=== PATIENT | male | born 1975 | race African-American/Black ===

== ENCOUNTER 2017-09-19 12:32 | Emergency (ER) | payer SELFPAY ==
[~2017-09-19] VITALS: Ht 182.9 cm; Wt 105.0 kg
[2017-09-19 12:53] VITALS: BP 149/70; PULSE 81; RESP 17; TEMP 98.2; O2SAT 94
--- NOTE | 2017-09-19 14:22 | RADRPT ---
EXAM DATE/TIME: 09/19/2017 13:36 [facility] COMPARISON: No previous studies available for comparison. INDICATIONS : Left side chest pains with pressure. MEDICAL HISTORY : Pulmonary embolism 2017 SURGICAL HISTORY : None. ENCOUNTER: Initial ACUITY: 2 days PAIN SCORE: 7/10 LOCATION: Left chest FINDINGS: A single view of the chest demonstrates the lungs to be symmetrically aerated without evidence of mas s, infiltrate or effusion. The cardiomediastinal contours are unremarkable. Osseous structures are intact. CONCLUSION: Normal examination. Carlitos Cisneros Jr., MD on September 19, 2017 at 14:18 Board Certified Radiologist. This report was verified electronically.
[2017-09-19 17:14] LABS: AUTOMATED NEUTROPHIL # 3.2 TH/MM3 (1.8-7.7); BASOPHIL # 0.1 TH/MM3 (0-0.2); BASOPHIL % 1.1 % (0.0-2.0); EOSINOPHIL # 0.1 TH/MM3 (0-0.4); EOSINOPHIL % 1.7 % (0.0-4.0); HEMATOCRIT 40.9 % (39.0-51.0); HEMOGLOBIN 13.7 GM/DL (13.0-17.0); LYMPH % 47.7 % (9.0-44.0); LYMPHOCYTE # 3.7 TH/MM3 (1.0-4.8); MEAN CELL VOLUME 96.2 FL (80.0-100.0); MEAN CORPUSCULAR HEMOGLOBIN 32.1 PG (27.0-34.0); MEAN CORPUSCULAR HGB CONC 33.4 % (32.0-36.0); MEAN PLATELET VOLUME 9.3 FL (7.0-11.0); MONO % 7.5 % (0.0-8.0); MONOCYTE # 0.6 TH/MM3 (0-0.9); PLATELET COUNT 191 TH/MM3 (150-450); RED BLOOD COUNT 4.25 MIL/MM3 (4.50-5.90); RED CELL DISTRIBUTION WIDTH 15.4 % (11.6-17.2); WHITE BLOOD COUNT 7.7 TH/MM3 (4.0-11.0)
[2017-09-19 17:46] LABS: TROPONIN I LESS THAN 0.02 NG/ML (0.02-0.05)
[2017-09-19 18:01] LABS: BICARBONATE 23.6 MEQ/L (21.0-32.0); BLOOD UREA NITROGEN 9 MG/DL (7-18); CHLORIDE 110 MEQ/L (98-107); CREATININE 1.28 MG/DL (0.60-1.30); GLOMERULAR FILTRATION RATE 62 ML/MIN (>89); GLUCOSE,RANDOM 70 MG/DL (74-106); SODIUM (NA) 143 MEQ/L (136-145)
== END 2017-09-19 20:21 | disposition left against medical advice (07) ==
LOC: NED 12:32
DX: R07.9 Chest pain, unspecified (principal)
CPT/HCPCS: 71045; 80048; 82550; 82552; 84484; 85025; 99281

== ENCOUNTER 2017-10-15 13:19 | Inpatient (IN) | payer SELFPAY ==
[~2017-10-15] VITALS: Ht 182.9 cm; Wt 103.3 kg
[2017-10-15 13:45] VITALS: BP_SYST 122; BP_SYST 126; BP_DIAS 66; BP_DIAS 73; PULSE 99; RESP 18; TEMP 98.6; O2SAT 94
[2017-10-15] MEDS ORDERED: MORPHINE SULFATE 4 MG/ML INJ IV PUSH ONE (13:45)
[2017-10-15] MEDS ORDERED: SODIUM CHLORID 0.9% 500 ML INJ 500 ML IV ONE (13:45)
[2017-10-15] MEDS ORDERED: NITROGLYCERIN 2% OINT 1 GM PACKET TOP ONE (13:45)
[2017-10-15] MEDS ORDERED: SODIUM CHLOR 0.9% 1000 ML INJ 1,000 ML IV ONE (13:45)
[2017-10-15] MEDS ORDERED: SODIUM CHLORIDE 0.9% FLUSH 10 ML FLUSH IVF PRN (13:45)
[2017-10-15] MEDS ORDERED: ASPIRIN 81 MG CHEW TAB PO ONE (13:45)
[2017-10-15 14:00] LABS: AUTOMATED NEUTROPHIL # 6.6 TH/MM3 (1.8-7.7); BASOPHIL # 0.1 TH/MM3 (0-0.2); BASOPHIL % 0.5 % (0.0-2.0); EOSINOPHIL # 0.1 TH/MM3 (0-0.4); EOSINOPHIL % 1.2 % (0.0-4.0); HEMATOCRIT 44.8 % (39.0-51.0); HEMOGLOBIN 14.9 GM/DL (13.0-17.0); LYMPH % 20.2 % (9.0-44.0); LYMPHOCYTE # 1.9 TH/MM3 (1.0-4.8); MEAN CELL VOLUME 98.5 FL (80.0-100.0); MEAN CORPUSCULAR HEMOGLOBIN 32.8 PG (27.0-34.0); MEAN CORPUSCULAR HGB CONC 33.3 % (32.0-36.0); MEAN PLATELET VOLUME 9.3 FL (7.0-11.0); MONO % 6.9 % (0.0-8.0); MONOCYTE # 0.6 TH/MM3 (0-0.9); NEUT % 71.2 % (16.0-70.0); PLATELET COUNT 125 TH/MM3 (150-450); RED BLOOD COUNT 4.55 MIL/MM3 (4.50-5.90); RED CELL DISTRIBUTION WIDTH 16.3 % (11.6-17.2); WHITE BLOOD COUNT 9.3 TH/MM3 (4.0-11.0)
[2017-10-15 14:07] LABS: INTERNATIONAL NORMALIZED RATIO 1.1 RATIO; PROTHROMBIN TIME - PATIENT 10.9 SEC (9.8-11.6)
[2017-10-15 14:13] LABS: BICARBONATE 26.7 MEQ/L (21.0-32.0); BLOOD UREA NITROGEN 4 MG/DL (7-18); CALCIUM 8.7 MG/DL (8.5-10.1); CHLORIDE 108 MEQ/L (98-107); CREATININE 1.32 MG/DL (0.60-1.30); GLOMERULAR FILTRATION RATE 72 ML/MIN (>89); GLUCOSE,RANDOM 119 MG/DL (74-106); MAGNESIUM 2.1 MG/DL (1.5-2.5); SODIUM (NA) 143 MEQ/L (136-145)
[2017-10-15 14:17] LABS: TROPONIN I 0.07 NG/ML (0.02-0.05)
--- NOTE | 2017-10-15 14:28 | RADRPT ---
EXAM DATE/TIME: 10/15/2017 13:46 [facility] COMPARISON: CHEST SINGLE AP, September 19, 2017, 13:36. INDICATIONS : Pain and pressure anterior chest, short of breath MEDICAL HISTORY : pulmonary embolus 2017 SURGICAL HISTORY : None. ENCOUNTER: Initial ACUITY: 2 days PAIN SCORE: 10/10 LOCATION: Bilateral chest FINDINGS: A single view of the chest demonstrates the lungs to be symmetrically aerated without evidence of mas s, infiltrate or effusion. The cardiomediastinal contours are unremarkable. Osseous structures are intact. CONCLUSION: No acute disease. Maurizio Valdivia MD on October 15, 2017 at 14:25 Board Certified Radiologist. This report was verified electronically.
--- NOTE | 2017-10-15 15:01 | PD ---
HPI Chief Complaint: Chest Pain Time Seen by Provider: 13:37 Travel History International Travel<30 days: No Contact w/Intl Traveler<30days: No Traveled to known affect area: No History of Present Illness HPI The patient is 42 years old and arrives with chest pain. He has had chest pain for 1 week. Associated symptoms include shortness of breath. He also reports coughing up bloody sputum. He reports a history of PE last year. He stopped taking Coumadin 2 months prior. EMS reports the patient has been using cocaine. PFSH Past Medical History Hx Anticoagulant Therapy: Yes (WARFARIN) Cardiovascular Problems: Yes Respiratory: Yes (PE) Past Surgical History Other Surgery: Yes (finler in the lungs ? ) Social History Alcohol Use: Yes (daily ) Tobacco Use: Yes (5 black mild ) Substance Use: Yes (cocaine, pot ) Allergies-Medications (Allergen,Severity, Reaction): Coded Allergies: No Known Allergies (Unverified , 09/19/17) Reported Meds & Prescriptions Reported Meds & Active Scripts Active No Active Prescriptions or Reported Medications Review of Systems Except as stated in HPI: all other systems reviewed are Neg General / Constitutional: No: Fever Eyes: No: Diploplia Physical Exam Narrative GENERAL: 42-year-old male pleasant well-nourished well-developed Vital Signs Date Time Temp Pulse Resp B/P (MAP) Pulse Ox O2 Delivery O2 Flow Rate FiO2 10/15/17 15:35 88 Room Air 10/15/17 15:35 92 Nasal Cannula 2.00 10/15/17 14:01 16 10/15/17 13:45 (90) Room Air 10/15/17 13:45 94 Room Air 10/15/17 13:45 98.6 99 18 126/73 (90) 94 Room Air 122/66 (84) 10/15/17 13:42 102 18 98 SKIN: Warm and dry. HEAD: Atraumatic. Normocephalic. EYES: Pupils equal and round. No scleral icterus. No injection or drainage. ENT: No nasal bleeding or discharge. Mucous membranes pink and moist. NECK: Trachea midline. No JVD. CARDIOVASCULAR: Tachycardia. Regular. RESPIRATORY: No accessory muscle use. Clear to auscultation. Breath sounds equal bilaterally. GASTROINTESTINAL: Abdomen soft, non-tender, nondistended. Hepatic and splenic margins not palpable. MUSCULOSKELETAL: Extremities without clubbing, cyanosis, or edema. No obvious deformities. NEUROLOGICAL: Awake and alert. No obvious cranial nerve deficits. Motor grossly within normal limits. Five out of 5 muscle strength in the arms and legs. Normal speech. PSYCHIATRIC: Appropriate mood and affect; insight and judgment normal. Data Data Last Documented VS Vital Signs Date Time Temp Pulse Resp B/P (MAP) Pulse Ox O2 Delivery O2 Flow Rate FiO2 10/15/17 15:35 88 Room Air 10/15/17 15:35 2.00 10/15/17 14:01 16 10/15/17 13:45 (90) 10/15/17 13:45 98.6 99 Orders Orders Electrocardiogram (10/15/17 13:40) Basic Metabolic Panel (Bmp) (10/15/17 13:40) Ckmb (Isoenzyme) Profile (10/15/17 13:40) Complete Blood Count With Diff (10/15/17 13:40) Magnesium (Mg) (10/15/17 13:40) Prothrombin Time / Inr (Pt) (10/15/17 13:40) Act Partial Throm Time (Ptt) (10/15/17 13:40) Troponin I (10/15/17 13:40) Chest, Single Ap (10/15/17 13:40) Ecg Monitoring (10/15/17 13:40) Bilateral Bp Monitoring (10/15/17 13:40) Iv Access Insert/Monitor (10/15/17 13:40) Oximetry (10/15/17 13:40) Oxygen Administration (10/15/17 13:40) Aspirin Chew (Aspirin Chew) (10/15/17 13:45) Morphine Inj (Morphine Inj) (10/15/17 13:45) Nitroglycerin 2% Oint (Nitroglycerin 2% (10/15/17 13:45) Sodium Chloride 0.9% Flush (Ns Flush) (10/15/17 13:45) Sodium Chlorid 0.9% 500 Ml Inj (Ns 500 M (10/15/17 13:45) Ct Pulmonary Angiogram (10/15/17 13:40) Sodium Chlor 0.9% 1000 Ml Inj (Ns 1000 M (10/15/17 13:45) CKMB (10/15/17 13:48) CKMB% (10/15/17 13:48) Drug Screen, Random Urine (10/15/17 14:55) Iohexol 350 Inj (Omnipaque 350 Inj) (10/15/17 15:06) Heparin Inj (Heparin Inj) (10/15/17 15:30) Heparin-D5w 25,000 U/250 Ml (Heparin-D5w (10/15/17 15:30) Act Partial Throm Time (Ptt) (10/15/17 15:19) Prothrombin Time / Inr (Pt) (10/15/17 15:19) Cbc No Diff, Includes Plts (10/18/17 06:00) Act Partial Throm Time (Ptt) (10/15/17 22:19) Occult Blood (Hemoccult) Stool (10/15/17 15:19) Admit Order (Ed Use Only) (10/15/17 ) Plate Washer / Telemetry HIRAM.Q8H (10/15/17 15:53) Vital Signs (Adult) Q4H (10/15/17 15:53) Diet Heart Healthy (10/15/17 Dinner) Activity Bed Rest (10/15/17 15:53) Labs Laboratory Tests Test 10/15/17 13:48 10/15/17 15:20 White Blood Count 9.3 TH/MM3 Red Blood Count 4.55 MIL/MM3 Hemoglobin 14.9 GM/DL Hematocrit 44.8 % Mean Corpuscular Volume 98.5 FL Mean Corpuscular Hemoglobin 32.8 PG Mean Corpuscular Hemoglobin Concent 33.3 % Red Cell Distribution Width 16.3 % Platelet Count 125 TH/MM3 Mean Platelet Volume 9.3 FL Neutrophils (%) (Auto) 71.2 % Lymphocytes (%) (Auto) 20.2 % Monocytes (%) (Auto) 6.9 % Eosinophils (%) (Auto) 1.2 % Basophils (%) (Auto) 0.5 % Neutrophils # (Auto) 6.6 TH/MM3 Lymphocytes # (Auto) 1.9 TH/MM3 Monocytes # (Auto) 0.6 TH/MM3 Eosinophils # (Auto) 0.1 TH/MM3 Basophils # (Auto) 0.1 TH/MM3 CBC Comment DIFF FINAL Differential Comment Prothrombin Time 10.9 SEC Prothromb Time International Ratio 1.1 RATIO Activated Partial Thromboplast Time 26.5 SEC Blood Urea Nitrogen 4 MG/DL Creatinine 1.32 MG/DL Random Glucose 119 MG/DL Calcium Level 8.7 MG/DL Magnesium Level 2.1 MG/DL Sodium Level 143 MEQ/L Potassium Level 4.0 MEQ/L Chloride Level 108 MEQ/L Carbon Dioxide Level 26.7 MEQ/L Anion Gap 8 MEQ/L Estimat Glomerular Filtration Rate 72 ML/MIN Total Creatine Kinase 125 U/L Creatine Kinase MB 0.9 NG/ML Troponin I 0.07 NG/ML Urine Opiates Screen NEG Urine Barbiturates Screen NEG Urine Amphetamines Screen NEG Urine Benzodiazepines Screen NEG Urine Cocaine Screen POS Urine Cannabinoids Screen POS MDM Medical Decision Making Medical Screen Exam Complete: Yes Emergency Medical Condition: Yes Medical Record Reviewed: Yes Differential Diagnosis Chest pain differential NSTEMI, unstable angina, coronary vasospasm, PE, PTX, aortic dissection, pericarditis, myocarditis, endocarditis, PNA, esophageal disease, aneurysm, musculoskeletal etiologies, anxiety, cocaine/sympathomimetic abuse Narrative Course CBC & BMP Diagram 10/15/17 13:48 Calcium Level 8.7, Magnesium Level 2.1 Tn 0.07 EKG sinus, rate 103, non-specific ST changes Last Impressions Chest X-Ray 10/15/17 1340 Signed Impressions: Service Date/Time: Sunday, October 15, 2017 13:46 - CONCLUSION: No acute disease. Maurizio Valdivia MD CT Angiography 10/15/17 1340 Signed Impressions: Service Date/Time: Sunday, October 15, 2017 14:58 - CONCLUSION: 1. Moderate bilateral pulmonary emboli extending into both lower lobes. 2. Mild patchy airspace disease in the superior segments of both lower lobes. 3. Small left effusion. These findings were called to Dr. Zuniga in the emergency room at 1515 hrs. Maurizio Valdivia MD Heparing started d/w Dr Jamison d/w Dr Christianson [facility] [place] admission Pt has remained hemodynamically stable throughout ED stay. Critical Care Narrative Aggregate critical care time was 35 minutes. Time to perform other separately billable procedures was not included in the critical care time. My time did not include minutes spent treating any other patients simultaneously or on activities that did not directly contribute to the patient's treatment. The services I provided to this patient were to treat and/or prevent clinically significant deterioration that could result in: Cardiopulmonary arrest I provided critical care services requiring my management, as noted below: Chart data review, documentation time, medication orders and management, vital sign assessments/reviewing monitor data, ordering and reviewing lab tests, ordering and interpreting/reviewing x-rays and diagnostic studies, care of the patient and discussion of the patient with the admitting physicians. Diagnosis Primary Impression: Pulmonary embolism Qualified Codes: I26.99 - Other pulmonary embolism without acute cor pulmonale Additional Impressions: Pneumonia Qualified Codes: J18.9 - Pneumonia, unspecified organism Elevated troponin Cocaine abuse Admitting Information Admitting Physician Requests: Admit Scripts No Active Prescriptions or Reported Meds Preet Zuniga MD Oct 15, 2017 15:01
[2017-10-15] MEDS ORDERED: IOHEXOL 350 MG/ML 10 ML VIAL (for RAD DIAG) IVCONTRAST ONE (15:06)
--- NOTE | 2017-10-15 15:20 | RADRPT ---
EXAM DATE/TIME: 10/15/2017 14:58 [facility] COMPARISON: CHEST SINGLE AP, October 15, 2017, 13:46. INDICATIONS : Shortness of breath, cough IV CONTRAST: 73 cc Omnipaque 350 (iohexol) IV RADIATION DOSE: 18.05 CTDIvol (mGy) MEDICAL HISTORY : Cardiovascular disease. Pulmonary embolism SURGICAL HISTORY : None. ENCOUNTER: Initial ACUITY: 1 week PAIN SCALE: 2/10 LOCATION: Bilateral chest TECHNIQUE: Volumetric scanning of the chest was performed using a pulmonary embolism protocol MIP images were re constructed. Using automated exposure control and adjustment of the mA and/or kV according to patien t size, radiation dose was kept as low as reasonably achievable to obtain optimal diagnostic quality images. DICOM format image data is available electronically for review and comparison. Follow-up recommendations for detected pulmonary nodules are based at a minimum on nodule size and pa tient risk factors according to Fleischner Society Guidelines. FINDINGS: PULMONARY ARTERIES: The main pulmonary artery intact. The distal right and left main pulmonary arteries demonstrated exte nsive filling defects bilaterally with thrombus extending into both lower lobes. Thrombus extends int o the upper lobes as well. LUNGS: There is mild patchy airspace disease in the posterior aspect of the superior segments of both lower lobes There is no pneumothorax . No concerning pulmonary nodule is visualized. PLEURAE: There is a small right pleural effusion. MEDIASTINUM: There is good visualization of the great vessels of the middle mediastinum. No evidence of mediastin al or hilar adenopathy/mass. MUSCULOSKELETAL: Within normal limits for patient age. MISCELLANEOUS: The visualized upper abdominal organs demonstrate no acute abnormality. CONCLUSION: 1. Moderate bilateral pulmonary emboli extending into both lower lobes. 2. Mild patchy airspace disease in the superior segments of both lower lobes. 3. Small left effusion. These findings were called to Dr. Zuniga in the emergency room at 1515 hrs. Maurizio Valdivia MD on October 15, 2017 at 15:10 Board Certified Radiologist. This report was verified electronically.
[2017-10-15] MEDS ORDERED: HEPARIN SODIUM - IV 10,000 UNITS/10 ML VIAL IV PUSH ONE (15:30)
[2017-10-15] MEDS: HEPARIN-D5W 25,000 U/250 ML 250 ML IV PRN (15:45)
[2017-10-15] MEDS ORDERED: CHLORHEXIDINE GLUCONATE 2 % 1 PACK (2 CLOTHS) TOP PRN (16:15)
[2017-10-15] MEDS ORDERED: RESP: ALBUTEROL 2.5 MG/IPRATROPIUM 0.5 MG NEB (PRN) INH (16:15)
[2017-10-15] MEDS ORDERED: SENNOSIDES 8.6 MG TAB PO PRN (16:15)
[2017-10-15] MEDS ORDERED: ONDANSETRON HCL 4 MG/2 ML VIAL IV PUSH PRN (16:15)
[2017-10-15] MEDS ORDERED: SODIUM CHLORIDE 0.9% FLUSH 10 ML FLUSH IV FLUSH PRN (16:15)
[2017-10-15] MEDS ORDERED: LACTULOSE SYRUP 20 GM/30 ML CUP PO PRN (16:15)
[2017-10-15] MEDS ORDERED: MAGNESIUM HYDROXIDE SUSP 30 ML CUP PO PRN (16:15)
[2017-10-15] MEDS ORDERED: BISACODYL 10 MG SUPP RECTAL PRN (16:15)
[2017-10-15] MEDS ORDERED: NURSING INFORMATION XX SCH (16:15)
[2017-10-15] MEDS ORDERED: ACETAMINOPHEN 325 MG TAB PO PRN (16:15)
[2017-10-15] MEDS: NS + KCL 20 MEQ INJ 1,000 ML IV SCH (17:08)
--- NOTE | 2017-10-15 17:14 | HHI.HP ---
HPI Service Critical Care Medicine Primary Care Physician No Primary Care Physician Admission Diagnosis Bilateral PE; Elevated Troponin; Coumadin Noncompliance Diagnosis: Travel History International Travel<30 Days: No Contact w/Intl Traveler <30 Da: No Traveled to Known Affected Are: No History of Present Illness History of Present Illness HPI 42-year-old male with a past medical history significant for pulmonary embolism. Taking his warfarin about 2 months ago and now presents with shortness of breath and chest pain going on for about 1 week. He reportedly also coughed up some bloody sputum at home. He admits to using cocaine about 5 days back. Patient underwent CT pulmonary angiogram in the ER which showed bilateral moderate PE. Patient was started on heparin for anticoagulation and accepted for admission by critical care medicine service. When I evaluated the patient he was laying in the ER stretcher on nasal cannula. He was minimally short of breath. He denies any fever or chills. Denies any melena or rectal bleeding. 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 History is obtained by discussion with patient and ER physician. Patient tells me that he has a mother and sister and will be contacting them to let them know regarding his admission. History PFSH Past Medical History Hx Anticoagulant Therapy: Yes (WARFARIN) Cardiovascular Problems: Yes Respiratory: Yes (PE) Past Surgical History Other Surgery: Yes (finler in the lungs ? ) Social History Alcohol Use: Yes (daily ) Tobacco Use: Yes (5 black mild ) Substance Use: Yes (cocaine, pot ) Allergies-Medications Allergies-Medications (Allergen,Severity, Reaction): Coded Allergies: No Known Allergies (Unverified , 09/19/17) Reported Meds & Prescriptions Reported Meds & Active Scripts Active No Active Prescriptions or Reported Medications ROS Review of Systems Except as stated in HPI: all other systems reviewed are Neg General / Constitutional: No: Fever Eyes: No: Diploplia Physical Exam Vital Signs Vital Signs Date Time Temp Pulse Resp B/P (MAP) Pulse Ox O2 Delivery O2 Flow Rate FiO2 10/15/17 15:35 88 Room Air 10/15/17 15:35 92 Nasal Cannula 2.00 10/15/17 14:01 16 10/15/17 13:45 (90) Room Air 10/15/17 13:45 94 Room Air 10/15/17 13:45 98.6 99 18 126/73 (90) 94 Room Air 122/66 (84) 10/15/17 13:42 102 18 98 Physical Exam Narrative GENERAL: 42-year-old male pleasant well-nourished well-developed SKIN: Warm and dry. HEAD: Atraumatic. Normocephalic. EYES: Pupils equal and round. No scleral icterus. No injection or drainage. ENT: No nasal bleeding or discharge. Mucous membranes pink and moist. NECK: Trachea midline. No JVD. CARDIOVASCULAR: Regular rate and rhythm. RESPIRATORY: No accessory muscle use. Clear to auscultation. Breath sounds equal bilaterally. GASTROINTESTINAL: Abdomen soft, non-tender, nondistended. Hepatic and splenic margins not palpable. MUSCULOSKELETAL: Extremities without clubbing, cyanosis, or edema. No obvious deformities. NEUROLOGICAL: Awake and alert. No obvious cranial nerve deficits. Motor grossly within normal limits. Five out of 5 muscle strength in the arms and legs. Normal speech. PSYCHIATRIC: Appropriate mood and affect; insight and judgment normal. Laboratory Laboratory Tests Test 10/15/17 13:48 10/15/17 15:20 White Blood Count 9.3 Red Blood Count 4.55 Hemoglobin 14.9 Hematocrit 44.8 Mean Corpuscular Volume 98.5 Mean Corpuscular Hemoglobin 32.8 Mean Corpuscular Hemoglobin Concent 33.3 Red Cell Distribution Width 16.3 Platelet Count 125 Mean Platelet Volume 9.3 Neutrophils (%) (Auto) 71.2 Lymphocytes (%) (Auto) 20.2 Monocytes (%) (Auto) 6.9 Eosinophils (%) (Auto) 1.2 Basophils (%) (Auto) 0.5 Neutrophils # (Auto) 6.6 Lymphocytes # (Auto) 1.9 Monocytes # (Auto) 0.6 Eosinophils # (Auto) 0.1 Basophils # (Auto) 0.1 CBC Comment DIFF FINAL Differential Comment Prothrombin Time 10.9 Prothromb Time International Ratio 1.1 Activated Partial Thromboplast Time 26.5 Blood Urea Nitrogen 4 Creatinine 1.32 Random Glucose 119 Calcium Level 8.7 Magnesium Level 2.1 Sodium Level 143 Potassium Level 4.0 Chloride Level 108 Carbon Dioxide Level 26.7 Anion Gap 8 Estimat Glomerular Filtration Rate 72 Total Creatine Kinase 125 Creatine Kinase MB 0.9 Troponin I 0.07 Urine Opiates Screen NEG Urine Barbiturates Screen NEG Urine Amphetamines Screen NEG Urine Benzodiazepines Screen NEG Urine Cocaine Screen POS Urine Cannabinoids Screen POS Result Diagram: 10/15/17 1404 10/15/17 1348 Imaging Last Impressions Chest X-Ray 10/15/17 1340 Signed Impressions: Service Date/Time: Sunday, October 15, 2017 13:46 - CONCLUSION: No acute disease. Maurizio Valdivia MD CT Angiography 10/15/[id number] Signed Impressions: Service Date/Time: Sunday, October 15, 2017 14:58 - CONCLUSION: 1. Moderate bilateral pulmonary emboli extending into both lower lobes. 2. Mild patchy airspace disease in the superior segments of both lower lobes. 3. Small left effusion. These findings were called to Dr. Zuniga in the emergency room at 1515 hrs. Maurizio Valdivia MD Caprini VTE Risk Assessment Caprini VTE Risk Assessment: Mod/High Risk (score >= 2) Caprini Risk Assessment Model Point Value = 1 Point Value = 2 Point Value = 3 Point Value = 5 Age 41-60 Minor surgery BMI > 25 kg/m2 Swollen legs Varicose veins or History of unexplained or recurrent spontaneous Oral contraceptives or hormone replacement Sepsis (< 1 month) Serious lung disease, including pneumonia (< 1 month) Abnormal pulmonary function Acute myocardial infarction Congestive heart failure (< 1 month) History of inflammatory bowel disease Medical patient at bed rest Age 61-74 Arthroscopic surgery Major open surgery (> 45 min) Laparoscopic surgery (> 45 min) Malignancy Confined to bed (> 72 hours) Immobilizing plaster cast Central venous access Age >= 75 History of VTE Family history of VTE Factor V Leiden Prothrombin [id number] Lupus anticoagulant Anticardiolipin antibodies Elevated serum homocysteine Heparin-induced thrombocytopenia Other congenital or acquired thrombophilia Stroke (< 1 month) Elective arthroplasty Hip, pelvis, or leg fracture Acute spinal cord injury (< 1 month) Prophylaxis Regimen Total Risk Factor Score Risk Level Prophylaxis Regimen 0-1 Low Early ambulation 2 Moderate Order ONE of the following: *Sequential Compression Device (SCD) *Heparin 5000 units SQ BID 3-4 Higher Order ONE of the following medications: *Heparin 5000 units SQ TID *Enoxaparin/Lovenox 40 mg SQ daily (WT < 150 kg, CrCl > 30 mL/min) *Enoxaparin/Lovenox 30 mg SQ daily (WT < 150 kg, CrCl > 10-29 mL/min) *Enoxaparin/Lovenox 30 mg SQ BID (WT < 150 kg, CrCl > 30 mL/min) AND/OR *Sequential Compression Device (SCD) 5 or more Highest Order ONE of the following medications: *Heparin 5000 units SQ TID (Preferred with Epidurals) *Enoxaparin/Lovenox 40 mg SQ daily (WT < 150 kg, CrCl > 30 mL/min) *Enoxaparin/Lovenox 30 mg SQ daily (WT < 150 kg, CrCl > 10-29 mL/min) *Enoxaparin/Lovenox 30 mg SQ BID (WT < 150 kg, CrCl > 30 mL/min) AND *Sequential Compression Device (SCD) Assessment and Plan Assessment and Plan 42-year-old male with: Bilateral pulmonary embolism Chest pain Cocaine positive Plan: Neuro: Follow neuro status. Morphine/Percocet as needed for pain. Cardiovascular: IV hydration, watch for hypotension. Started on anticoagulation with heparin GTT. Will initiate warfarin 3 mg p.o. daily with pharmacy consult for adjusting warfarin dosing. Emphasized to patient importance of not discontinuing Coumadin which resulted in his recurrent PE. Check 2D echo to assess for RV dysfunction. Pulmonary: Supplemental O2, bronchodilators as needed. GI/liver: P.o. diet as tolerated. Renal/: IV hydration, follow intake output, BUN creatinine. Monitor and replete electrolytes. ID: No indication for antibiotics at this time. Heme: Follow CBC and coags. On anticoagulation with heparin GTT. Starting warfarin for anticoagulation. Prophylaxis: PPI/SCDs/full anti-coagulation with heparin. Critical care will continue to follow. Earle Christianson MD Oct 15, 2017 17:14
[2017-10-15] MEDS ORDERED: WARFARIN SOD 3 MG TAB PO SCH (17:15)
[2017-10-15 18:05] VITALS: BP 139/67; PULSE 103; RESP 31; TEMP 98.5; O2SAT 96
[2017-10-15 20:00] VITALS: BP 115/66; PULSE 96; RESP 17; TEMP 98.3; O2SAT 96
[2017-10-15] MEDS: DOCUSATE SODIUM 50 MG/SENNA 8.6 MG TAB PO SCH (20:00)
[2017-10-15] MEDS: SODIUM CHLORIDE 0.9% FLUSH 10 ML FLUSH IV FLUSH SCH (20:00)
--- NOTE | 2017-10-15 20:45 | EKG ---
Date Performed: 10/15/2017 Time Performed: 13:41:00 PTAGE: 42 years EKG: SINUS TACHYCARDIA ABNORMAL RHYTHM ECG NO PREVIOUS TRACING DOCTOR: Chris Reed Interpretating Date/Time 10/15/2017 20:44:05
[2017-10-15] MEDS ORDERED: ZOLPIDEM TARTRATE 5 MG TAB PO PRN (21:00)
[2017-10-15 22:00] VITALS: PULSE 94
[2017-10-16] VITALS (14 sets, daily range): BP systolic 103–139; BP diastolic 59–90; PULSE 81–105; RESP 19–29; TEMP 97.9–99.4; O2SAT 94–100
[2017-10-16] MEDS: NS + KCL 20 MEQ INJ 1,000 ML IV SCH ×3 (03:06→23:29)
[2017-10-16] MEDS: CHLORHEXIDINE GLUCONATE 2 % 1 PACK (2 CLOTHS) TOP SCH ×2 (04:00→20:39)
[2017-10-16 04:04] LABS: AUTOMATED NEUTROPHIL # 4.3 TH/MM3 (1.8-7.7); BASOPHIL # 0.1 TH/MM3 (0-0.2); BASOPHIL % 0.8 % (0.0-2.0); EOSINOPHIL # 0.1 TH/MM3 (0-0.4); EOSINOPHIL % 1.6 % (0.0-4.0); HEMATOCRIT 38.9 % (39.0-51.0); LYMPH % 37.3 % (9.0-44.0); MEAN CELL VOLUME 98.4 FL (80.0-100.0); MEAN CORPUSCULAR HEMOGLOBIN 32.9 PG (27.0-34.0); MEAN CORPUSCULAR HGB CONC 33.5 % (32.0-36.0); MEAN PLATELET VOLUME 9.6 FL (7.0-11.0); MONO % 6.8 % (0.0-8.0); MONOCYTE # 0.6 TH/MM3 (0-0.9); NEUT % 53.5 % (16.0-70.0); PLATELET COUNT 127 TH/MM3 (150-450); RED BLOOD COUNT 3.95 MIL/MM3 (4.50-5.90); RED CELL DISTRIBUTION WIDTH 16.4 % (11.6-17.2); WHITE BLOOD COUNT 8.1 TH/MM3 (4.0-11.0)
[2017-10-16 04:09] LABS: ALBUMIN 2.8 GM/DL (3.4-5.0); AST (GOT) 16 U/L (15-37); BICARBONATE 21.9 MEQ/L (21.0-32.0); BLOOD UREA NITROGEN 5 MG/DL (7-18); CHLORIDE 109 MEQ/L (98-107); CREATININE 1.22 MG/DL (0.60-1.30); GLOMERULAR FILTRATION RATE 79 ML/MIN (>89); GLUCOSE,RANDOM 116 MG/DL (74-106); SODIUM (NA) 140 MEQ/L (136-145)
[2017-10-16 04:10] LABS: ALT (GPT) 20 U/L (12-78)
[2017-10-16 04:13] LABS: ALKALINE PHOSPHATASE 64 U/L (45-117); TOTAL BILIRUBIN ADULT 0.7 MG/DL (0.2-1.0); TOTAL PROTEIN 6.7 GM/DL (6.4-8.2)
[2017-10-16] MEDS: HEPARIN-D5W 25,000 U/250 ML 250 ML IV PRN ×2 (06:18→19:11)
--- NOTE | 2017-10-16 07:51 | HHI.CCPN ---
Subjective Remarks/Hospital Course 10/15: 42-year-old male with a past medical history significant for pulmonary embolism. Taking his warfarin about 2 months ago and now presents with shortness of breath and chest pain going on for about 1 week. He reportedly also coughed up some bloody sputum at home. He admits to using cocaine about 5 days back. Patient underwent CT pulmonary angiogram in the ER which showed bilateral moderate PE. Patient was started on heparin for anticoagulation and accepted for admission by critical care medicine service. When I evaluated the patient he was laying in the ER stretcher on nasal cannula. He was minimally short of breath. He denies any fever or chills. Denies any melena or rectal bleeding. 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 History is obtained by discussion with patient and ER physician. Patient tells me that he has a mother and sister and will be contacting them to let them know regarding his admission. 10/16: Resting comfortably in bed. Remains on nasal cannula. No hypotension overnight. Remains on anticoagulation with heparin and warfarin. Awaiting 2D echo. Objective Vital Signs Date Time Temp Pulse Resp B/P (MAP) Pulse Ox O2 Delivery O2 Flow Rate FiO2 10/16/17 07:00 97 Nasal Cannula 2.00 10/16/17 06:00 93 10/16/17 04:00 99.4 26 103/59 (74) Intake and Output 10/16/17 10/16/17 10/17/17 08:00 16:00 00:00 Intake Total 2667 ml Output Total 950 ml Balance 1717 ml Result Diagram: 10/16/17 0247 10/16/17 0257 Imaging Last Impressions Chest X-Ray 10/15/17 1340 Signed Impressions: Service Date/Time: Sunday, October 15, 2017 13:46 - CONCLUSION: No acute disease. Maurizio Valdivia MD CT Angiography 10/15/17 1340 Signed Impressions: Service Date/Time: Sunday, October 15, 2017 14:58 - CONCLUSION: 1. Moderate bilateral pulmonary emboli extending into both lower lobes. 2. Mild patchy airspace disease in the superior segments of both lower lobes. 3. Small left effusion. These findings were called to Dr. Zuniga in the emergency room at 1515 hrs. Maurizio Valdivia MD Objective Remarks Narrative GENERAL: 42-year-old male pleasant well-nourished well-developed SKIN: Warm and dry. HEAD: Atraumatic. Normocephalic. EYES: Pupils equal and round. No scleral icterus. No injection or drainage. ENT: No nasal bleeding or discharge. Mucous membranes pink and moist. NECK: Trachea midline. No JVD. CARDIOVASCULAR: Regular rate and rhythm. RESPIRATORY: No accessory muscle use. Clear to auscultation. Breath sounds equal bilaterally. GASTROINTESTINAL: Abdomen soft, non-tender, nondistended. Hepatic and splenic margins not palpable. MUSCULOSKELETAL: Extremities without clubbing, cyanosis, or edema. No obvious deformities. NEUROLOGICAL: Awake and alert. No obvious cranial nerve deficits. Motor grossly within normal limits. Five out of 5 muscle strength in the arms and legs. Normal speech. PSYCHIATRIC: Appropriate mood and affect; insight and judgment normal. A/P Assessment and Plan 42-year-old male with: Bilateral pulmonary embolism Chest pain Cocaine positive Plan: Neuro: Follow neuro status. Morphine/Percocet as needed for pain. Cardiovascular: IV hydration, watch for hypotension. Continue anticoagulation with heparin GTT. Continue warfarin 3 mg p.o. daily with pharmacy consult for adjusting warfarin dosing. Emphasized to patient importance of not discontinuing Coumadin which resulted in his recurrent PE. F/U 2D echo to assess for RV dysfunction. Pulmonary: Supplemental O2, bronchodilators as needed. GI/liver: P.o. diet as tolerated. Renal/: IV hydration, follow intake output, BUN creatinine. Monitor and replete electrolytes. ID: No indication for antibiotics at this time. Heme: Follow CBC and coags. On anticoagulation with heparin GTT. Starting warfarin for anticoagulation. Prophylaxis: PPI/SCDs/full anti-coagulation with heparin. Consult and transfer to hospitalist service for further medical management. Critical care will be signing off tomorrow. Please reconsult if needed. Earle Christianson MD Oct 16, 2017 07:51
[2017-10-16] MEDS: SODIUM CHLORIDE 0.9% FLUSH 10 ML FLUSH IV FLUSH SCH ×2 (08:12→20:40)
[2017-10-16] MEDS: DOCUSATE SODIUM 50 MG/SENNA 8.6 MG TAB PO SCH ×2 (08:12→20:40)
[2017-10-16] MEDS: MORPHINE SULFATE 4 MG/ML INJ IV PUSH PRN (12:45)
[2017-10-16] MEDS: WARFARIN SOD 5 MG TAB PO SCH (16:16)
[2017-10-16] MEDS: oxyCODONE/ACETAMINOPHEN 5 MG/325 MG TAB PO PRN ×2 (16:17→23:30)
--- NOTE | 2017-10-16 18:33 | ECHRPT ---
Indication: Pulmonary Embolism CONCLUSIONS The left ventricular systolic function is mildly reduced with an estimated ejection fraction in the range of 45- 50%. Mild concentric left ventricular hypertrophy. The right ventricle is moderately dilated. [id number] mitral valve regurgitation. There is moderate valve regurgitation. BP: 103 / 59 HR: 93 Rhythm: Sinus MEASUREMENTS (Male / Female) Normal Values Technical Quality:Fair 2D ECHO LV Diastolic Diameter PLAX 4.2 cm 4.2 - 5.9 / 3.9 - 5.3 cm LV Systolic Diameter PLAX 3.3 cm IVS Diastolic Thickness 1.1 cm 0.6 - 1.0 / 0.6 - 0.9 cm LVPW Diastolic Thickness 1.1 cm 0.6 - 1.0 / 0.6 - 0.9 cm LV Relative Wall Thickness 0.5 RV Internal Dim ED PLAX 4.0 cm LVOT Diameter 2.0 cm LA Systolic Diameter LX 3.9 cm 3.0 - 4.0 / 2.7 - 3.8 cm M-MODE Aortic Root Diameter MM 2.9 cm LA Systolic Diameter MM 3.9 cm LA Ao Ratio MM 1.3 AV Cusp Separation MM 2.1 cm DOPPLER AV Peak Velocity 137.0 cm/s AV Peak Gradient 7.5 mmHg LVOT Peak Velocity 106.0 cm/s LVOT Peak Gradient 4.5 mmHg AV Area Cont Eq pk 2.4 cm MV Area PHT 3.1 cm Mitral E Point Velocity 50.0 cm/s Mitral A Point Velocity 55.2 cm/s Mitral E to A Ratio 0.9 LV E' Lateral Velocity 7.0 cm/s Mitral E to LV E' Lateral Ratio 7.1 LV E' Septal Velocity 9.3 cm/s Mitral E to LV E' Septal Ratio 5.4 TR Peak Velocity 459.0 cm/s TR Peak Gradient 84.3 mmHg Right Atrial Pressure 10.0 mmHg Pulmonary Artery Systolic Pressu 94.3 mmHg Right Ventricular Systolic Press 94.3 mmHg FINDINGS LEFT VENTRICLE The left ventricular systolic function is mildly reduced with an estimated ejection fraction in the range of 45- 50%. Mild concentric left ventricular hypertrophy. Normal left ventricular size. RIGHT VENTRICLE The right ventricle is moderately dilated. LEFT ATRIUM The left atrial size is normal. RIGHT ATRIUM The right atrial size is moderately dilated. ATRIAL SEPTUM Normal atrial septal thickness AORTA The aortic root and proximal ascending aorta are normal in size on limited imaging. MITRAL VALVE Structurally normal mitral valve. [id number] mitral valve regurgitation. No mitral valve stenosis. AORTIC VALVE Trileaflet aortic valve. No aortic valve stenosis or regurgitation. TRICUSPID VALVE Structurally normal tricuspid valve. There is moderate valve regurgitation. The estimated pulmonary arterial pressure is 94.3 mmHg. PULMONARY VALVE Moderate pulmonary valve regurgitation. VESSELS The inferior vena cava is normal in size. PERICARDIUM No pericardial effusion. Fan Zuniga DO (Electronically Signed) Final Date:16 October 2017 18:32
[2017-10-17] MEDS: oxyCODONE/ACETAMINOPHEN 5 MG/325 MG TAB PO PRN ×2 (03:57→20:35)
[2017-10-17 04:00] VITALS: BP 131/74; PULSE 88; RESP 20; TEMP 97.6; O2SAT 94
[2017-10-17 04:06] VITALS: PULSE 82
[2017-10-17] MEDS ORDERED: LORazepam 2 MG TAB PO PRN (07:30)
[2017-10-17] MEDS ORDERED: FLUMAZENIL 0.5 MG/5 ML VIAL IV PUSH PRN (07:30)
[2017-10-17] MEDS ORDERED: LORazepam 1 MG TAB PO PRN (07:30)
[2017-10-17] MEDS ORDERED: LORazepam 2 MG/ML VIAL IV PUSH PRN ×4 (07:30)
[2017-10-17] MEDS ORDERED: HALOPERIDOL LACTATE 5 MG/ML AMP IM PRN (07:30)
[2017-10-17 08:00] VITALS: BP 139/66; PULSE 77; PULSE 82; RESP 20; TEMP 97.5; O2SAT 93
[2017-10-17 08:01] LABS: INTERNATIONAL NORMALIZED RATIO 1.1 RATIO; PROTHROMBIN TIME - PATIENT 10.7 SEC (9.8-11.6)
[2017-10-17] MEDS: DOCUSATE SODIUM 50 MG/SENNA 8.6 MG TAB PO SCH ×2 (08:24→20:35)
[2017-10-17] MEDS: THIAMINE HCL 100 MG TAB PO SCH (08:24)
[2017-10-17] MEDS: FOLIC ACID 1 MG TAB PO SCH (08:24)
[2017-10-17] MEDS: MULTIVITAMINS/MINERALS THERAPEUTIC TAB PO SCH (08:24)
[2017-10-17] MEDS: SODIUM CHLORIDE 0.9% FLUSH 10 ML FLUSH IV FLUSH SCH ×2 (08:26→20:35)
[2017-10-17] MEDS: NS + KCL 20 MEQ INJ 1,000 ML IV SCH (09:30)
[2017-10-17] MEDS: HEPARIN-D5W 25,000 U/250 ML 250 ML IV PRN (10:43)
--- NOTE | 2017-10-17 11:31 | HHI.PR ---
Subjective Remarks F/U PE. No complaints denies CP SOB and hemoptysis. Dx B/L PE and LLE DVT 06/10 claims he injured his toe at that time. Probably had thrombolysis which he described as catheter in his groin to remove clot in his lungs. Did not check PT op. Now he states he will be complaint coumadin teaching. Also ok with novel agent. Consult Heme for recs Objective Vitals Vital Signs Date Time Temp Pulse Resp B/P (MAP) Pulse Ox O2 Delivery O2 Flow Rate FiO2 10/17/17 08:00 97.5 82 20 139/66 (90) 93 10/17/17 08:00 77 10/17/17 07:00 Room Air 10/17/17 04:06 82 10/17/17 04:00 97.6 88 20 131/74 (93) 94 10/16/17 23:42 88 10/16/17 22:15 98.9 86 20 139/80 (99) 99 10/16/17 20:55 96 Nasal Cannula 1.00 10/16/17 20:00 98.2 84 29 132/71 (91) 94 10/16/17 20:00 84 10/16/17 19:00 97 Nasal Cannula 2.00 10/16/17 18:00 81 10/16/17 18:00 81 10/16/17 17:17 20 10/16/17 16:00 87 10/16/17 16:00 98.2 87 26 112/65 (81) 94 10/16/17 14:00 104 10/16/17 12:50 14 10/16/17 12:00 88 10/16/17 12:00 97.9 88 19 138/90 (106) 100 I/O 10/16/17 10/16/17 10/16/17 10/17/17 10/17/17 10/17/17 07:00 15:00 23:00 07:00 15:00 23:00 Intake Total 2667 ml 683 ml 1450 ml 1533 ml Output Total 950 ml 2500 ml Balance 1717 ml 683 ml -1050 ml 1533 ml Intake Oral 1100 ml 1200 ml 360 ml IV Total 1567 ml 683 ml 250 ml 1173 ml Output Urine Total 950 ml 2500 ml # Voids 6 Result Diagram: 10/16/17 0247 10/16/17 0257 Imaging Last Impressions Chest X-Ray 10/15/17 1340 Signed Impressions: Service Date/Time: Sunday, October 15, 2017 13:46 - CONCLUSION: No acute disease. Maurizio Valdivia MD CT Angiography 10/15/17 1340 Signed Impressions: Service Date/Time: Sunday, October 15, 2017 14:58 - CONCLUSION: 1. Moderate bilateral pulmonary emboli extending into both lower lobes. 2. Mild patchy airspace disease in the superior segments of both lower lobes. 3. Small left effusion. These findings were called to Dr. Zuniga in the emergency room at 1515 hrs. Maurizio Valdivia MD Objective Remarks GENERAL: 42-year-old male pleasant well-nourished well-developed SKIN: Warm and dry. HEAD: Atraumatic. Normocephalic. EYES: Pupils equal and round. No scleral icterus. No injection or drainage. ENT: No nasal bleeding or discharge. Mucous membranes pink and moist. NECK: Trachea midline. No JVD. CARDIOVASCULAR: Regular rate and rhythm. RESPIRATORY: No accessory muscle use. Clear to auscultation. Breath sounds equal bilaterally. GASTROINTESTINAL: Abdomen soft, non-tender, nondistended. MUSCULOSKELETAL: Extremities without clubbing, cyanosis, or edema. No obvious deformities. NEUROLOGICAL: Awake and alert. No obvious cranial nerve deficits. Motor grossly within normal limits. Five out of 5 muscle strength in the arms and legs. Normal speech. PSYCHIATRIC: Appropriate mood and affect; insight and judgment normal. Procedures none A/P Problem List: (1) Pulmonary embolism ICD Code: I26.99 - Other pulmonary embolism without acute cor pulmonale Status: Acute Assessment and Plan B/L PE. Dx B/L PE and LLE DVT 06/10 claims he injured his toe at that time. Probably had thrombolysis which he described as catheter in his groin to remove clot in his lungs. Noncompliant Did not check PT op. Now he states he will be compliant coumadin teaching provided. Also ok with novel agent. Consult Heme for recs. Records requested. ECHO noted POOJA. Improved dc IVF Cocaine abuse. Counselled Mild hyperglycemia. Outpatient follow-up. Discharge Planning Discharge when INR therapeutic. Discussed with case management will work on med assistance( Coumadin?PT vs DOACS) Problem Qualifiers (1) Pulmonary embolism: Qualified Codes: I26.99 - Other pulmonary embolism without acute cor pulmonale Shaheen Brooks MD Oct 17, 2017 11:31
[2017-10-17] MEDS ORDERED: THIA100 PO (11:51)
--- NOTE | 2017-10-17 11:52 | HHI.DCPOC ---
Discharge Care Plan Diagnosis: (1) Pulmonary embolism Your Health Problems Are: Difficulty with ADL Exercise Tolerance Goals to Promote Your Health * To prevent worsening of your condition and complications * To maintain your health at the optimal level Directions to Meet Your Goals Take your medications as prescribed Follow your dietary instruction Follow activity as directed Keep your appointments as scheduled Take your immunizations and boosters as scheduled If your symptoms worsen call your PCP, if no PCP go to Urgent Care Center or Emergency Room Smoking is Dangerous to Your Health. Avoid second hand smoke Call the 24-hour hour crisis hotline for domestic abuse at Shaheen Brooks MD Oct 17, 2017 11:52
[2017-10-17 12:00] VITALS: BP 113/69; PULSE 74; PULSE 89; RESP 20; TEMP 98.2; O2SAT 97
[2017-10-17 16:00] VITALS: BP 128/78; PULSE 79; PULSE 85; RESP 20; TEMP 98.5; O2SAT 98
[2017-10-17] MEDS: WARFARIN SOD 5 MG TAB PO SCH (16:56)
[2017-10-17 20:00] VITALS: BP 139/95; PULSE 80; PULSE 84; RESP 16; TEMP 97.7; O2SAT 98
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
[2017-10-18] VITALS: BP 124/60; PULSE 73; PULSE 75; RESP 16; TEMP 98.5; O2SAT 97
[2017-10-18] MEDS: MORPHINE SULFATE 4 MG/ML INJ IV PUSH PRN (00:32)
[2017-10-18] MEDS: CHLORHEXIDINE GLUCONATE 2 % 1 PACK (2 CLOTHS) TOP SCH (03:00)
[2017-10-18 04:00] VITALS: BP 115/62; PULSE 75; PULSE 76; RESP 16; TEMP 98.5; O2SAT 98
[2017-10-18 04:47] LABS: HEMATOCRIT 41.4 % (39.0-51.0); HEMOGLOBIN 13.7 GM/DL (13.0-17.0); MEAN CELL VOLUME 97.8 FL (80.0-100.0); MEAN CORPUSCULAR HEMOGLOBIN 32.4 PG (27.0-34.0); MEAN CORPUSCULAR HGB CONC 33.1 % (32.0-36.0); MEAN PLATELET VOLUME 9.4 FL (7.0-11.0); PLATELET COUNT 198 TH/MM3 (150-450); RED BLOOD COUNT 4.23 MIL/MM3 (4.50-5.90); RED CELL DISTRIBUTION WIDTH 15.9 % (11.6-17.2); WHITE BLOOD COUNT 6.4 TH/MM3 (4.0-11.0)
[2017-10-18 04:52] LABS: INTERNATIONAL NORMALIZED RATIO 1.1 RATIO; PROTHROMBIN TIME - PATIENT 10.9 SEC (9.8-11.6)
[2017-10-18 08:00] VITALS: BP 108/60; PULSE 79; PULSE 83; RESP 20; TEMP 98.4; O2SAT 96
[2017-10-18] MEDS: DOCUSATE SODIUM 50 MG/SENNA 8.6 MG TAB PO SCH (09:00)
[2017-10-18] MEDS ORDERED: ENOXAPARIN SODIUM 100 MG/ML SYRINGE SQ SCH (09:00)
[2017-10-18] MEDS: MULTIVITAMINS/MINERALS THERAPEUTIC TAB PO SCH (09:06)
[2017-10-18] MEDS: FOLIC ACID 1 MG TAB PO SCH (09:06)
[2017-10-18] MEDS: THIAMINE HCL 100 MG TAB PO SCH (09:06)
[2017-10-18] MEDS: SODIUM CHLORIDE 0.9% FLUSH 10 ML FLUSH IV FLUSH SCH (09:07)
[2017-10-18] MEDS: oxyCODONE/ACETAMINOPHEN 5 MG/325 MG TAB PO PRN (09:18)
[2017-10-18 11:09] VITALS: O2SAT 96
--- NOTE | 2017-10-18 11:10 | HHI.PR ---
Subjective Remarks /U PE. 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 Does not want DO AC Objective Vitals Vital Signs Date Time Temp Pulse Resp B/P (MAP) Pulse Ox O2 Delivery O2 Flow Rate FiO2 10/18/17 11:09 96 21 10/18/17 08:00 98.4 79 20 108/60 (76) 96 10/18/17 08:00 83 10/18/17 07:00 Room Air 10/18/17 04:00 76 10/18/17 04:00 98.5 75 16 115/62 (79) 98 10/18/17 00:37 16 10/18/17 00:00 98.5 75 16 124/60 (81) 97 10/18/17 00:00 73 10/17/17 21:35 18 10/17/17 20:00 84 10/17/17 20:00 Room Air 10/17/17 20:00 97.7 80 16 139/95 (110) 98 10/17/17 16:00 98.5 79 20 128/78 (95) 98 10/17/17 16:00 85 10/17/17 12:00 98.2 89 20 113/69 (84) 97 10/17/17 12:00 74 I/O 10/17/17 10/17/17 10/17/17 10/18/17 10/18/17 10/18/17 07:00 15:00 23:00 07:00 15:00 23:00 Intake Total 1533 ml 600 ml Output Total 850 ml Balance 1533 ml 600 ml -850 ml Intake Oral 360 ml 600 ml IV Total 1173 ml Output Urine Total 850 ml # Voids 6 5 2 # Bowel Movements 0 Result Diagram: 10/18/17 0330 10/16/17 0257 Imaging Last Impressions Chest X-Ray 10/15/17 1340 Signed Impressions: Service Date/Time: Sunday, October 15, 2017 13:46 - CONCLUSION: No acute disease. Maurizio Valdivia MD CT Angiography 10/15/17 1340 Signed Impressions: Service Date/Time: Sunday, October 15, 2017 14:58 - CONCLUSION: 1. Moderate bilateral pulmonary emboli extending into both lower lobes. 2. Mild patchy airspace disease in the superior segments of both lower lobes. 3. Small left effusion. These findings were called to Dr. Zuniga in the emergency room at 1515 hrs. Maurizio Valdivia MD Objective Remarks GENERAL: 42-year-old male pleasant well-nourished well-developed SKIN: Warm and dry. CARDIOVASCULAR: Regular rate and rhythm. RESPIRATORY: No accessory muscle use. Clear to auscultation. Breath sounds equal bilaterally. GASTROINTESTINAL: Abdomen soft, non-tender, nondistended. MUSCULOSKELETAL: Extremities without clubbing, cyanosis, or edema. No obvious deformities. NEUROLOGICAL: Awake and alert. No obvious cranial nerve deficits. Motor grossly within normal limits. Five out of 5 muscle strength in the arms and legs. Normal speech. PSYCHIATRIC: Appropriate mood and affect; insight and judgment normal. Procedures none A/P Problem List: (1) Pulmonary embolism ICD Code: I26.99 - Other pulmonary embolism without acute cor pulmonale Status: Acute Assessment and Plan B/L PE. Dx B/L PE and LLE DVT 06/10 claims he injured his toe at that time. Probably had thrombolysis which he described as catheter in his groin to remove clot in his lungs. Noncompliant Did not check PT op. Now he states he will be compliant, Coumadin teaching provided. He is stable continue anticoagulation with Coumadin bridged with Lovenox. Patient has been counseled. Discussed with case management for med assistance and need for outpatient monitoring of PT and INR POOJA. Improved dc IVF Cocaine abuse. Counselled Mild hyperglycemia. Outpatient follow-up. Discharge Planning Stable for discharge Problem Qualifiers (1) Pulmonary embolism: Qualified Codes: I26.99 - Other pulmonary embolism without acute cor pulmonale Shaheen Brooks MD Oct 18, 2017 11:10
[2017-10-18] MEDS ORDERED: COUM5TAB PO (11:17)
[2017-10-18] MEDS ORDERED: ENOX100P SQ (11:17)
[2017-10-18 12:00] VITALS: BP 130/78; PULSE 77; RESP 20; TEMP 97.8; O2SAT 96
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
[2017-10-18] MEDS ORDERED: WARFARIN SOD 2.5 MG TAB PO ONE (16:00)
--- NOTE | 2017-10-18 16:16 | PD.ONC.PN ---
Subjective Subjective Remarks I don't have seven dollars. Pt wants someone to pay for his copay. He threatens despite its bad for his well being not to pick up man his medication because he does not have copay. Wants to be on Coumadin. Understand the importance to bridge and the check pt/inr. Objective Data Date Time Temp Pulse Resp B/P (MAP) Pulse Ox O2 Delivery O2 Flow Rate FiO2 10/18/17 12:00 97.8 77 20 130/78 (95) 96 10/18/17 11:09 96 21 10/18/17 08:00 98.4 79 20 108/60 (76) 96 10/18/17 08:00 83 10/18/17 07:00 Room Air 10/18/17 04:00 76 10/18/17 04:00 98.5 75 16 115/62 (79) 98 10/18/17 00:37 16 10/18/17 00:00 98.5 75 16 124/60 (81) 97 10/18/17 00:00 73 10/17/17 21:35 18 10/17/17 20:00 84 10/17/17 20:00 Room Air 10/17/17 20:00 97.7 80 16 139/95 (110) 98 10/18/17 10/18/17 10/18/17 07:00 15:00 23:00 Output Total 850 ml Balance -850 ml Result Diagram: 10/18/17 0330 10/16/17 0257 Laboratory Results Laboratory Tests Test 10/18/17 03:30 White Blood Count 6.4 TH/MM3 Red Blood Count 4.23 MIL/MM3 Hemoglobin 13.7 GM/DL Hematocrit 41.4 % Mean Corpuscular Volume 97.8 FL Mean Corpuscular Hemoglobin 32.4 PG Mean Corpuscular Hemoglobin Concent 33.1 % Red Cell Distribution Width 15.9 % Platelet Count 198 TH/MM3 Mean Platelet Volume 9.4 FL Prothrombin Time 10.9 SEC Prothromb Time International Ratio 1.1 RATIO Objective Remarks GENERAL: Well-nourished, well-developed patient. SKIN: Warm and dry. HEAD: Normocephalic. EYES: No scleral icterus. No injection or drainage. NECK: Supple, trachea midline. No JVD or lymphadenopathy. LYMPHATIC: No adenopathy. CARDIOVASCULAR: Regular rate and rhythm without murmurs. RESPIRATORY: Breath sounds equal bilaterally. No accessory muscle use. GASTROINTESTINAL: Abdomen soft, non-tender, nondistended. EXTREMITIES: No cyanosis, or edema. MUSCULOSKELETAL: Adequate muscle tone. NEUROLOGICAL: No obvious focal deficit. Awake, alert, and oriented x3. PSYCHIATRIC: Angry. Assessment/Plan Problem List: (1) Bilateral pulmonary embolism ICD Codes: I26.99 - Other pulmonary embolism without acute cor pulmonale Status: Acute Plan: Recurrent PE while off Coumadin x 2 months. Pt with cocaine use. Poor compliance. Discussed at length importance of continue his anticoagulant therapy. Discussed option of NOAC which he decline. Offer fu at hem/onc clinic to check pt/inr Ewelina Maria MD Oct 18, 2017 16:16
== END 2017-10-18 16:09 | disposition home or self-care (01) | DRG 176 ==
LOC: NEPE 13:19 → NEDA 15:55 → HIME 18:00 → N04A 10-16 22:13
PROVIDERS: ADMIT Internal Medicine; ATTEND Internal Medicine
DX: I26.99 Other pulmonary embolism without acute cor pulmonale (principal); N17.9 Acute kidney failure, unspecified; R73.9 Hyperglycemia, unspecified; F14.10 Cocaine abuse, uncomplicated; F12.929 Cannabis use, unspecified with intoxication, unspecified; Z86.711 Personal history of pulmonary embolism; Z91.19 Patient's noncompliance with other medical treatment and regimen; Z79.01 Long term (current) use of anticoagulants; Z72.0 Tobacco use; Z86.718 Personal history of other venous thrombosis and embolism
CPT/HCPCS: 71045; 71275; 80048; 80053; 80307; 82550; 82552; 83735; 84484; 85025; 85027; 85610; 85730; 87641; 93005; 93306; 96361; 96374; 96375; J1644; J1650; J2270; J3480; J7030; J7040; Q9967